=== PATIENT | male | born 1945 | race Caucasian/White ===

== ENCOUNTER 2023-10-17 07:54 | Emergency (ER) | payer MEDICARE, OTHER ==
[2023-10-17] MEDS ORDERED: Dexamethasone 10 MG/ML VIAL ONE (08:23)
[2023-10-17] MEDS ORDERED: Metoclopramide HCl 10 MG (2 mL) VIAL ONE (08:34)
[2023-10-17] MEDS ORDERED: diphenhydrAMINE 50 MG/ML VIAL ONE (08:34)
[2023-10-17 08:55] LABS: PTT 25.5 sec (22.0-33.0); Prothrombin Time 10.6 sec (9.5-12.1)
[2023-10-17 09:00] LABS: ALT (SGPT) 7 U/L (8-55); AST (SGOT) 9 U/L (5-34); Albumin 3.7 g/dL (3.4-4.8); Alkaline Phosphatase 67 U/L (40-110); Anion Gap 16 mmol/L (10-20); BUN (Urea Nitrogen) 49 mg/dL (8.4-25.7); Bilirubin, Total 0.4 mg/dL (0.2-1.2); Calc. Creatinine Clearance 0 mL/min (70-130); Calcium 9.3 mg/dL (7.8-10.44); Carbon Dioxide 21 mmol/L (23-31); Chloride 103 mmol/L (98-107); Estimated GFR 30; Globulin 3.7 g/dL (2.4-3.5); Glucose 96 mg/dL (83-110); Potassium 4.3 mmol/L (3.5-5.1); Protein, Total 7.4 g/dL (5.8-8.1); Sodium 136 mmol/L (136-145)
[2023-10-17 09:03] LABS: Troponin I 0.019 ng/mL (< 0.028)
[2023-10-17 09:16] LABS: #Basophils 0.06 10x3/uL (0.0-0.2); #Monocytes 0.72 10x3/uL (0.0-1.1); #Neutrophils 4.69 10x3/uL (1.5-8.4); %Basophils 0.7 % (0.0-2.0); %Eosinophils 4.8 % (0.0-6.0); %Lymphocytes 28.8 % (18.0-47.0); %Monocytes 8.7 % (0.0-10.0); %Neutrophils 56.8 % (40.0-75.0); Hematocrit 27.9 % (38.8-50.0); Hemoglobin 8.9 g/dL (13.5-17.5); Mean Corpuscular HGB CONC 31.9 g/dL (32.0-36.0); Mean Corpuscular Hemoglobin 29.3 pg (27.0-33.0); Mean Corpuscular Volume 91.8 fl (81.2-95.1); Mean Platelet Volume 9.7 fl (7.4-10.4); Platelet Count 297 10x3/uL (150-450); RBC Distribution Width 16.9 % (11.5-14.5); Red Blood Cell (RBC) Count 3.04 10x6/uL (4.32-5.72); White Blood Cell (WBC) Count 8.3 10x3/uL (3.5-10.5)
[2023-10-17 09:38] LABS: Bilirubin Neg (Negative); Blood, Urine 10 (Negative); Clarity Slightly Cloudy (Clear); Glucose, Urine (Dipstick) Normal (Negative); Ketone, Urine Negative (Negative); Leukocyte 500 (Negative); Nitrite Negative (Negative); Protein, Urine (Dipstick) 15 mg/dl (Neg-Trace); Specific Gravity, Urine 1.015 (1.005-1.030); Urobilinogen Normal mg/dL (Less than 2)
[2023-10-17 09:48] LABS: CAUTI Indications for Culture Alt mental st,lethar; Transitional Epithelial 0-3 HPF (None Seen)
[2023-10-17 09:49] LABS: Bacteria/HPF 3+ HPF (None Seen)
[2023-10-17 09:51] LABS: Urine Culture Reflex Yes Yes
== END 2023-10-17 10:36 | disposition home or self-care (01) ==
LOC: CSHERS 07:54
DX: R51.9 Headache, unspecified (principal); R53.1 Weakness; E78.5 Hyperlipidemia, unspecified; I10 Essential (primary) hypertension; Z79.899 Other long term (current) drug therapy; Z79.82 Long term (current) use of aspirin; Z86.73 Personal history of transient ischemic attack (TIA), and cerebral infarction without residual deficits
CPT/HCPCS: 36416; 70450; 80053; 81001; 84484; 85025; 85610; 85730; 87077; 87086; 87186; 93005; 96361; 96374; 96375; J1100; J1200; J2765

== ENCOUNTER 2023-11-16 00:39 | Inpatient (IN) | payer OTHER ==
[2023-11-16 01:27] LABS: #Basophils 0.04 10x3/uL (0.0-0.2); #Eosinphils 0.37 10x3/uL (0.0-0.5); #Monocytes 0.62 10x3/uL (0.0-1.1); #Neutrophils 4.76 10x3/uL (1.5-8.4); %Basophils 0.5 % (0.0-2.0); %Lymphocytes 21.7 % (18.0-47.0); %Monocytes 8.3 % (0.0-10.0); %Neutrophils 64.1 % (40.0-75.0); Hematocrit 28.7 % (38.8-50.0); Hemoglobin 9.2 g/dL (13.5-17.5); Mean Corpuscular HGB CONC 32.1 g/dL (32.0-36.0); Mean Corpuscular Hemoglobin 29.9 pg (27.0-33.0); Mean Corpuscular Volume 93.2 fl (81.2-95.1); Platelet Count 298 10x3/uL (150-450); RBC Distribution Width 14.1 % (11.5-14.5); Red Blood Cell (RBC) Count 3.08 10x6/uL (4.32-5.72); White Blood Cell (WBC) Count 7.4 10x3/uL (3.5-10.5)
[2023-11-16 01:38] LABS: Bilirubin Neg (Negative); Blood, Urine 25 (Negative); Clarity Slightly Cloudy (Clear); Glucose, Urine (Dipstick) Normal (Negative); Ketone, Urine Negative (Negative); Leukocyte 500 (Negative); Nitrite Positive (Negative); Protein, Urine (Dipstick) 30 mg/dl (Neg-Trace); Urobilinogen Normal mg/dL (Less than 2)
[2023-11-16 01:39] LABS: ALT (SGPT) 10 U/L (8-55); AST (SGOT) 7 U/L (5-34); Albumin 3.8 g/dL (3.4-4.8); Alkaline Phosphatase 88 U/L (40-110); Anion Gap 16 mmol/L (10-20); BUN (Urea Nitrogen) 73 mg/dL (8.4-25.7); Bilirubin, Total 0.4 mg/dL (0.2-1.2); Calc. Creatinine Clearance 0 mL/min (70-130); Calcium 9.8 mg/dL (7.8-10.44); Carbon Dioxide 20 mmol/L (23-31); Chloride 109 mmol/L (98-107); Estimated GFR 27; Glucose 109 mg/dL (83-110); Potassium 4.8 mmol/L (3.5-5.1); Protein, Total 7.8 g/dL (5.8-8.1); Sodium 140 mmol/L (136-145)
[2023-11-16] MEDS ORDERED: Cefepime 2 GM VIAL ONE (01:47)
[2023-11-16 02:02] LABS: Bacteria/HPF 2+ HPF (None Seen); CAUTI Indications for Culture Urological Procedure; RBC/HPF 0-3 HPF (0-3); Squamous Epithelial 0-3 HPF (0-3)
[2023-11-16 02:04] LABS: Urine Culture Reflex Yes Yes
[2023-11-16 02:17] LABS: Actual Bicarbonate (HCO3v) 18.3 mEq/L (22-28); Analyzer IN Cardio CS ER; Base Excess -6.8 mEq/L (-2 - +2); Calcium, Ionized (venous) 1.13 mmol/L (1.16-1.32); Chloride (VBG) 107 mmol/L (98-106); Critical Notified By: CP.PH; Hematocrit-VBG 30 % (42.0-52.0); Hemoglobin (Hb) 10.3 g/dL (12.6-17.4); Potassium (VBG) 4.91 mmol/L (3.70-5.30); Puncture Site Other Site; Sodium 139 mmol/L (133-146); pH (venous) 7.339 (7.32-7.43)
[2023-11-16] MEDS ORDERED: Ondansetron PF 4 MG/2 ML Vial IVP PRN (02:19)
[2023-11-16] MEDS ORDERED: Calcium Carbonate 500 MG ChewTAB PO PRN (02:19)
[2023-11-16] MEDS ORDERED: Senokot S 8.6-50 MG TAB PO PRN (02:19)
[2023-11-16 03:25] VITALS: BMI 26.7
[2023-11-16] MEDS: Lactated Ringer's 500 ML IV SCH ×2 (03:26→09:52)
[2023-11-16] MEDS: Famotidine 20 MG TAB PO SCH (09:50)
[2023-11-16] MEDS: Oxybutynin ER 5 MG TAB PO SCH (09:51)
[2023-11-16] MEDS: Aspirin 81 mg Enteric Coated Tablet PO SCH (09:51)
[2023-11-16] MEDS: Amlodipine 5 MG TAB PO SCH (09:51)
[2023-11-16] MEDS: Ferrous Sulfate 325 MG TAB PO SCH (09:51)
[2023-11-16] MEDS: Cholecalciferol 1,000 UNITS (25 MCG) TAB PO SCH (09:51)
[2023-11-16] MEDS: Polyethylene Glycol 3350 17 GM Packet PO SCH (09:52)
[2023-11-16] MEDS: cefTRIAXone\\ROCEPHIN 1 GM in Sodium Chloride 0.9% 100 ML IVPB SCH (11:58)
[2023-11-16 12:34] LABS: Anion Gap 15 mmol/L (10-20); BUN (Urea Nitrogen) 52 mg/dL (8.4-25.7); CK (CPK) 51 U/L (30-200); Calc. Creatinine Clearance 36 mL/min (70-130); Calcium 9.6 mg/dL (7.8-10.44); Carbon Dioxide 19 mmol/L (23-31); Chloride 111 mmol/L (98-107); Estimated GFR 39; Glucose 90 mg/dL (83-110); Potassium 5.1 mmol/L (3.5-5.1); Sodium 140 mmol/L (136-145)
[2023-11-16] MEDS: OLANZapine 10 MG VIAL IM SCH (17:40)
[2023-11-16] MEDS: Sterile Water 10 ML ONE (17:41)
[2023-11-16] MEDS: Atorvastatin Calcium 40 MG TAB PO SCH (20:01)
[2023-11-16] MEDS: Enoxaparin 30 MG (0.3 mL) SYRINGE SC SCH (20:01)
[2023-11-16] MEDS: Acetaminophen 325 MG TAB PO PRN (20:07)
[2023-11-17 03:26] LABS: #Basophils 0.04 10x3/uL (0.0-0.2); #Eosinphils 0.35 10x3/uL (0.0-0.5); #Monocytes 0.48 10x3/uL (0.0-1.1); #Neutrophils 3.03 10x3/uL (1.5-8.4); %Basophils 0.8 % (0.0-2.0); %Eosinophils 6.8 % (0.0-6.0); %Lymphocytes 24.4 % (18.0-47.0); %Monocytes 9.3 % (0.0-10.0); %Neutrophils 58.5 % (40.0-75.0); Hematocrit 28.1 % (38.8-50.0); Hemoglobin 9.1 g/dL (13.5-17.5); Mean Corpuscular HGB CONC 32.4 g/dL (32.0-36.0); Mean Corpuscular Hemoglobin 29.8 pg (27.0-33.0); Mean Corpuscular Volume 92.1 fl (81.2-95.1); Mean Platelet Volume 10.3 fl (7.4-10.4); Platelet Count 254 10x3/uL (150-450); RBC Distribution Width 13.7 % (11.5-14.5); Red Blood Cell (RBC) Count 3.05 10x6/uL (4.32-5.72); White Blood Cell (WBC) Count 5.2 10x3/uL (3.5-10.5)
[2023-11-17 03:48] LABS: Anion Gap 15 mmol/L (10-20); BUN (Urea Nitrogen) 37 mg/dL (8.4-25.7); Calc. Creatinine Clearance 39 mL/min (70-130); Calcium 9.6 mg/dL (7.8-10.44); Carbon Dioxide 20 mmol/L (23-31); Chloride 110 mmol/L (98-107); Estimated GFR 45; Glucose 93 mg/dL (83-110); Potassium 4.7 mmol/L (3.5-5.1); Sodium 140 mmol/L (136-145)
[2023-11-17] MEDS: Sterile Water 10 ML VIAL FS SCH (12:17)
[2023-11-17] MEDS: OLANZapine 10 MG VIAL IM SCH (12:17)
[2023-11-17] MEDS: Enoxaparin 40 MG (0.4 mL) SYRINGE SC SCH (21:57)
[2023-11-18 04:19] LABS: #Basophils 0.05 10x3/uL (0.0-0.2); #Eosinphils 0.42 10x3/uL (0.0-0.5); #Monocytes 0.51 10x3/uL (0.0-1.1); %Basophils 0.8 % (0.0-2.0); %Lymphocytes 19.9 % (18.0-47.0); %Monocytes 8.5 % (0.0-10.0); %Neutrophils 63.6 % (40.0-75.0); Hematocrit 28.5 % (38.8-50.0); Hemoglobin 9.4 g/dL (13.5-17.5); Mean Corpuscular Hemoglobin 30.2 pg (27.0-33.0); Mean Corpuscular Volume 91.6 fl (81.2-95.1); Mean Platelet Volume 10.4 fl (7.4-10.4); Platelet Count 257 10x3/uL (150-450); RBC Distribution Width 13.6 % (11.5-14.5); Red Blood Cell (RBC) Count 3.11 10x6/uL (4.32-5.72)
[2023-11-18 04:31] LABS: Anion Gap 17 mmol/L (10-20); BUN (Urea Nitrogen) 28 mg/dL (8.4-25.7); Calc. Creatinine Clearance 47 mL/min (70-130); Calcium 9.6 mg/dL (7.8-10.44); Carbon Dioxide 17 mmol/L (23-31); Chloride 110 mmol/L (98-107); Estimated GFR 55; Glucose 89 mg/dL (83-110); Potassium 4.1 mmol/L (3.5-5.1); Sodium 140 mmol/L (136-145)
[2023-11-18] MEDS ORDERED: Haloperidol Lactate 5 MG/ML VIAL IM SCH (05:15)
[2023-11-18] MEDS: Haloperidol Lactate 5 MG/ML VIAL IM SCH (08:01)
[2023-11-18] MEDS: QUEtiapine 25 MG TAB PO SCH (11:25)
[2023-11-19] MEDS: Melatonin 3 MG TAB PO SCH (03:30)
[2023-11-19 04:12] LABS: #Basophils 0.05 10x3/uL (0.0-0.2); #Eosinphils 0.52 10x3/uL (0.0-0.5); #Monocytes 0.63 10x3/uL (0.0-1.1); #Neutrophils 3.53 10x3/uL (1.5-8.4); %Basophils 0.8 % (0.0-2.0); %Lymphocytes 27.1 % (18.0-47.0); %Monocytes 9.7 % (0.0-10.0); %Neutrophils 54.1 % (40.0-75.0); Hematocrit 28.2 % (38.8-50.0); Hemoglobin 9.5 g/dL (13.5-17.5); Mean Corpuscular HGB CONC 33.7 g/dL (32.0-36.0); Mean Corpuscular Hemoglobin 30.5 pg (27.0-33.0); Mean Corpuscular Volume 90.7 fl (81.2-95.1); Mean Platelet Volume 10.6 fl (7.4-10.4); Platelet Count 268 10x3/uL (150-450); RBC Distribution Width 13.5 % (11.5-14.5); Red Blood Cell (RBC) Count 3.11 10x6/uL (4.32-5.72); White Blood Cell (WBC) Count 6.5 10x3/uL (3.5-10.5)
[2023-11-19 05:21] LABS: Anion Gap 16 mmol/L (10-20); BUN (Urea Nitrogen) 27 mg/dL (8.4-25.7); Calc. Creatinine Clearance 46 mL/min (70-130); Calcium 9.8 mg/dL (7.8-10.44); Carbon Dioxide 20 mmol/L (23-31); Chloride 107 mmol/L (98-107); Estimated GFR 54; Glucose 96 mg/dL (83-110); Sodium 139 mmol/L (136-145)
[2023-11-19 21:51] VITALS: TEMP 97.6
[2023-11-20 03:47] LABS: #Basophils 0.05 10x3/uL (0.0-0.2); #Eosinphils 0.54 10x3/uL (0.0-0.5); #Monocytes 0.63 10x3/uL (0.0-1.1); #Neutrophils 3.26 10x3/uL (1.5-8.4); %Basophils 0.8 % (0.0-2.0); %Eosinophils 8.8 % (0.0-6.0); %Lymphocytes 26.5 % (18.0-47.0); %Monocytes 10.3 % (0.0-10.0); %Neutrophils 53.4 % (40.0-75.0); Hematocrit 28.9 % (38.8-50.0); Hemoglobin 9.4 g/dL (13.5-17.5); Mean Corpuscular HGB CONC 32.5 g/dL (32.0-36.0); Mean Corpuscular Hemoglobin 29.7 pg (27.0-33.0); Mean Corpuscular Volume 91.5 fl (81.2-95.1); Mean Platelet Volume 10.2 fl (7.4-10.4); Platelet Count 247 10x3/uL (150-450); RBC Distribution Width 13.5 % (11.5-14.5); Red Blood Cell (RBC) Count 3.16 10x6/uL (4.32-5.72); White Blood Cell (WBC) Count 6.1 10x3/uL (3.5-10.5)
[2023-11-20 03:54] LABS: Anion Gap 14 mmol/L (10-20); BUN (Urea Nitrogen) 25 mg/dL (8.4-25.7); Calc. Creatinine Clearance 44 mL/min (70-130); Calcium 9.5 mg/dL (7.8-10.44); Carbon Dioxide 23 mmol/L (23-31); Chloride 106 mmol/L (98-107); Estimated GFR 51; Glucose 92 mg/dL (83-110); Sodium 139 mmol/L (136-145)
[2023-11-20 12:54] VITALS: BP 108/54
== END 2023-11-20 11:20 | disposition home or self-care (01) | DRG 699 ==
LOC: CSHERS 00:39 → CSHTELE 03:18 → OBSVTOIN 11-17 09:03
PROVIDERS: ADMIT Student in an Organized Health Care Education/Training Program; ATTEND Internal Medicine
DX: T83.510A Infection and inflammatory reaction due to cystostomy catheter, initial encounter (principal); F03.918 Unspecified dementia, unspecified severity, with other behavioral disturbance; N17.9 Acute kidney failure, unspecified; Z79.82 Long term (current) use of aspirin; Z79.899 Other long term (current) drug therapy; E78.5 Hyperlipidemia, unspecified; I12.9 Hypertensive chronic kidney disease with stage 1 through stage 4 chronic kidney disease, or unspecified chronic kidney disease; N18.30 Chronic kidney disease, stage 3 unspecified; Z98.890 Other specified postprocedural states; Z66 Do not resuscitate; D63.1 Anemia in chronic kidney disease; Z86.73 Personal history of transient ischemic attack (TIA), and cerebral infarction without residual deficits
CPT/HCPCS: 36415; 80048; 80053; 81001; 82550; 82805; 85025; 87077; 87086; 93005; J0692; J0696; J1650; J3490; J7120